=== PATIENT | female | born 1990 | race Caucasian/White ===

== ENCOUNTER 2021-02-25 07:09 | Day surgery (SDC) | payer MEDICAID, SELFPAY ==
[~2021-02-25] VITALS: Ht 160 cm; Wt 87.1 kg
[2021-02-25] MEDS ORDERED: BUPIVACAINE /PF 0.25% 30 ML VIAL INJ ONE (07:10)
[2021-02-25] MEDS ORDERED: methylPREDNISolone ACETATE 40 MG/ML IM ONE (07:10)
[2021-02-25] MEDS ORDERED: IOPAMIDOL 50 ML VIAL IV ONE (07:10)
[2021-02-25] MEDS ORDERED: LIDOCAINE 2%, 20 ML MDV INJ ONE (07:10)
[2021-02-25 08:17] LABS: HCG,QUAL RESULT NEGATIVE (NEGATIVE)
[2021-02-25] MEDS ORDERED: MIDAZOLAM HCL 5 MG/5 ML VIAL ONE (10:59)
[2021-02-25] MEDS ORDERED: DIPHENHYDRAMINE INJ 50 MG/ML VIAL ONE (10:59)
[2021-02-25 15:17] VITALS: BP_SYST 128
== END 2021-02-25 13:30 | disposition home or self-care (01) ==
LOC: SDS 07:09 → SMU 07:10 → SDS 13:30
PROVIDERS: ATTEND Internal Medicine
DX: M51.16 Intervertebral disc disorders with radiculopathy, lumbar region (principal); M51.9 Unspecified thoracic, thoracolumbar and lumbosacral intervertebral disc disorder; M79.10 Myalgia, unspecified site; G89.4 Chronic pain syndrome; M54.50 Low back pain, unspecified; E11.9 Type 2 diabetes mellitus without complications; I10 Essential (primary) hypertension; J45.909 Unspecified asthma, uncomplicated; F32.9 Major depressive disorder, single episode, unspecified; Z79.899 Other long term (current) drug therapy; Z20.822 Contact with and (suspected) exposure to COVID-19
CPT/HCPCS: 36415; 62323; 82962; 84703; 87426; J1200; J2250; 76000; J1030; J2001; J3490; Q9967